=== PATIENT | female | born 1980 | race Caucasian/White ===

== ENCOUNTER 2023-03-11 09:06 | Outpatient (CLI) | payer OTHER, SELFPAY | END 2023-03-11 09:07 | disposition home or self-care (01) | PROVIDERS: PCP Family Medicine; Visit Provider Family Medicine | DX: Z00.00 Encounter for general adult medical examination without abnormal findings (principal); D68.51 Activated protein C resistance; E66.01 Morbid (severe) obesity due to excess calories; Z13.6 Encounter for screening for cardiovascular disorders | CPT/HCPCS: 80053; 80061 ==

== ENCOUNTER 2023-06-10 14:38 | Outpatient (CLI) | payer OTHER, SELFPAY ==
--- NOTE | 2023-06-10 15:00 | CRLHL7_ITS ---
For Patients: As a result of the Century Cures Act, medical imaging exams and procedure reports are released immediately into your electronic medical record. You may view this report before your referring provider. If you have questions, please contact your health care provider. BILATERAL SCREENING MAMMOGRAM WITH COMPUTER-AIDED DETECTION AND TOMOSYNTHESIS TECHNIQUE: CC and MLO views were obtained. These mammographic images have been obtained using full-field digital technique. These mammographic images were interpreted with the benefit of computer-aided detection. Breast Tomosynthesis was used in this interpretation. COMPARISON FILM: 04/10/22. FINDINGS: There are scattered areas of fibroglandular density IMPRESSION: There is no radiographic evidence for malignancy. ASSESSMENT: BI-RADS Category 1: Negative RECOMMENDATION: Routine screening mammogram in 1 year. A lay language report of this examination will be provided to the patient. Juancarlos Stokes M.D. Diagnostic Radiologist [email or web address]/[email or web address] / be/Dictated by: Juancarlos Stokes MD @ 06/11/2023 8:37:00 AM (Electronically Signed)
== END 2023-06-10 14:39 | disposition home or self-care (01) ==
LOC: MAMMO 14:40
PROVIDERS: PCP Family Medicine; Visit Provider Family Medicine
DX: Z12.31 Encounter for screening mammogram for malignant neoplasm of breast (principal)
CPT/HCPCS: 77063; 77067

== ENCOUNTER 2023-08-30 15:42 | Outpatient (CLI) | payer OTHER, SELFPAY ==
--- NOTE | 2023-08-30 16:00 | CRLHL7_ITS ---
For Patients: As a result of the Century Cures Act, medical imaging exams and procedure reports are released immediately into your electronic medical record. You may view this report before your referring provider. If you have questions, please contact your health care provider. Indication: ABDOMINAL PAIN AND POSSIBLE PROTRUSION Technique: Grayscale ultrasound of the abdominal wall in the area of concern. Multiple cine clips obtained. Comparison: None Findings: No sonographic abnormality. No fluid collection or mass. No adenopathy or hernia. No abscess. Impression: Negative sonogram of the abdominal wall with and without Valsalva. Dictated by Juancarlos Stokes MD @ 09/02/2023 8:33:53 AM (Electronically Signed)
== END 2023-08-30 15:43 | disposition home or self-care (01) ==
LOC: US 15:43
PROVIDERS: PCP Family Medicine; Visit Provider Family Medicine
DX: R10.9 Unspecified abdominal pain (principal)
CPT/HCPCS: 76705

== ENCOUNTER 2024-05-29 14:41 | Outpatient (CLI) | payer OTHER, SELFPAY | END 2024-05-29 14:42 | disposition home or self-care (01) | PROVIDERS: PCP Family Medicine; Visit Provider Family Medicine | DX: Z00.00 Encounter for general adult medical examination without abnormal findings (principal); G25.81 Restless legs syndrome; Z13.6 Encounter for screening for cardiovascular disorders; Z13.1 Encounter for screening for diabetes mellitus; Z11.59 Encounter for screening for other viral diseases | CPT/HCPCS: 80053; 80061; 82728; 86803 ==

== ENCOUNTER 2024-06-16 10:07 | Outpatient (CLI) | payer OTHER, SELFPAY ==
--- NOTE | 2024-06-16 10:15 | CRLHL7_ITS ---
For Patients: As a result of the Century Cures Act, medical imaging exams and procedure reports are released immediately into your electronic medical record. You may view this report before your referring provider. If you have questions, please contact your health care provider. BILATERAL SCREENING MAMMOGRAM WITH COMPUTER-AIDED DETECTION AND TOMOSYNTHESIS TECHNIQUE: CC and MLO views were obtained. These mammographic images have been obtained using full-field digital technique. These mammographic images were interpreted with the benefit of computer-aided detection. Breast tomosynthesis was used in this interpretation. COMPARISON FILM: 06/10/23, 04/10/22. FINDINGS: There are scattered areas of fibroglandular density. IMPRESSION: There is no radiographic evidence for malignancy. ASSESSMENT: BI-RADS Category 1: Negative RECOMMENDATION: Routine screening mammogram in 1 year. A lay language report of this examination will be provided to the patient. JUANCARLOS LOPEZ M.D. Diagnostic Radiologist [email or web address] Transcribed: 3:[address]/Dictated by: Juancarlos Lopez MD @ 06/16/2024 12:35:00 PM (Electronically Signed)
== END 2024-06-16 10:08 | disposition home or self-care (01) ==
LOC: MAMMO 10:08
PROVIDERS: PCP Family Medicine; Visit Provider Family Medicine
DX: Z12.31 Encounter for screening mammogram for malignant neoplasm of breast (principal)
CPT/HCPCS: 77063; 77067

== ENCOUNTER 2025-06-11 08:52 | Outpatient (CLI) | payer OTHER, SELFPAY | END 2025-06-11 08:53 | disposition home or self-care (01) | LOC: NFLDREF 06-15 14:37 | PROVIDERS: PCP Family Medicine; Referring Provider Family Medicine; Visit Provider Physician Assistant Medical | DX: Z00.00 Encounter for general adult medical examination without abnormal findings (principal); F33.9 Major depressive disorder, recurrent, unspecified; G25.81 Restless legs syndrome; R79.0 Abnormal level of blood mineral; Z13.6 Encounter for screening for cardiovascular disorders | CPT/HCPCS: 80053; 80061; 82728; 84443 ==

== ENCOUNTER 2025-07-06 09:11 | Outpatient (CLI) | payer OTHER, SELFPAY ==
--- NOTE | 2025-07-06 09:15 | CRLHL7_ITS ---
For Patients: As a result of the Century Cures Act, medical imaging exams and procedure reports are released immediately into your electronic medical record. You may view this report before your referring provider. If you have questions, please contact your health care provider. INDICATION: BILATERAL SCREENING MAMMOGRAM, ASYMPTOMATIC 44 Y/O FEMALE COMPARISON: 06/16/2024, 06/10/2023, 04/10/2022 TECHNIQUE: Digital mammogram in CC and MLO projections including computer-aided detection (CAD) and tomosynthesis. BREAST COMPOSITION: There are scattered areas of fibroglandular density. FINDINGS: No suspicious findings. ASSESSMENT: BI-RADS 1 Negative RECOMMENDATION: Annual screening mammogram. A lay language report of this examination will be provided to the patient. Dictated by: Juancarlos Stokes MD @ 07/07/2025 08:43:59 (Electronically Signed)
== END 2025-07-06 09:12 | disposition home or self-care (01) ==
LOC: MAMMO 09:11
PROVIDERS: PCP Family Medicine; Visit Provider Family Medicine
DX: Z12.31 Encounter for screening mammogram for malignant neoplasm of breast (principal)
CPT/HCPCS: 77063; 77067